=== PATIENT | male | born 1970 | race Caucasian/White ===

== ENCOUNTER 2019-04-20 22:54 | Emergency (ER) | payer OTHER ==
[~2019-04-20] VITALS: Ht 167.6 cm; Wt 102.1 kg
--- OUTSIDE RECORDS SUMMARY | ~2019-04-20 | XMS | Clinical Summary ---
Demographics + + + | Address | [address] | | | [place] [address] | + + + | Home Phone | | + + + | Preferred Language | Unknown | + + + | Marital Status | Single | + + + | Baptism Affiliation | Unknown | + + + | Race | Unknown | + + + | Ethnic Group | Unknown | + + + Author + + + | Author | [facility] | + + + | Organization | [facility] | + + + | Address | Unknown | + + + | Phone | Unavailable | + + + Support + + + + + | Name | Relationship | Address | Phone | + + + + + | Trevor Denis | ECON | [address] | | | | | [place] [address] | | + + + + + | Halie Denis | ECON | [address] | | | | | [place] [address] | | + + + + + Care Team Providers + +------+ + | Care Plant Production Manager Name | Role | Phone | + +------+ + | Booker Yin MD | PP | | + +------+ + Allergies + + + + + + | Active Allergy | Reactions | Severity | Noted | Comments | | | | | Date | | + + + + + + | Fish Allergy | Other (See Comments) | Medium | 07/07/20 | Itchy throat and | | | | | 16 | hives, with fin | | | | | | fish, not shell fish | + + + + + + | Other-Food | Other (See Comments) | Medium | 07/07/20 | Watermelon, | | | | | 16 | cucumbers, honeydew, | | | | | | banana. | | | | | | Itchy/scratchy | | | | | | throat | + + + + + + Current Medications + + +--------+---------+------+------+-------+ | Prescription | Sig. | Disp. | Refills | Star | End | Statu | | | | | | t | Date | s | | | | | | Date | | | + + +--------+---------+------+------+-------+ | | Take 1 tablet by | | | | | Activ | | loratadine-pseudoeph | mouth daily. | | | | | e | | edrine (CLARITIN-D | | | | | | | | 24-HOUR) 10-240 MG | | | | | | | | per 24 hr tablet | | | | | | | + + +--------+---------+------+------+-------+ | Multiple | Take 1 tablet by | | | | | Activ | | Vitamins-Minerals | mouth daily. | | | | | e | | (CENTRUM PO) | | | | | | | + + +--------+---------+------+------+-------+ | Magnesium 400 MG | Take 1 capsule by | | | | | Activ | | CAPSIndications: leg | mouth 2 (two) times | | | | | e | | cramps | daily. | | | | | | | | Indications: leg | | | | | | | | cramps | | | | | | + + +--------+---------+------+------+-------+ | | Inhale 1 puff into | 180 | 3 | 03/0 | | Activ | | fluticasone-salmeter | the lungs 2 (two) | each | | 9/20 | | e | | ol (ADVAIR) 250-50 | times daily. | | | 16 | | | | MCG/DOSEIndications: | | | | | | | | Uncomplicated | | | | | | | | asthma, unspecified | | | | | | | | asthma severity | | | | | | | + + +--------+---------+------+------+-------+ | ferrous sulfate, | Take 1 tablet by | 60 | 5 | 04/2 | | Activ | | 65 FE, 324 (65 FE) | mouth 2 (two) times | tablet | | 6/20 | | e | | MG EC | daily with meals. | | | 16 | | | | tabletIndications: | | | | | | | | Microcytic anemia | | | | | | | + + +--------+---------+------+------+-------+ | traMADol (ULTRAM) | TAKE 1 TABLET BY | 90 | 0 | 03/0 | | Activ | | 50 MG | MOUTH EVERY 6 HOURS | tablet | | 6/20 | | e | | tabletIndications: | NEEDED FOR PAIN | | | 17 | | | | Chronic pain | | | | | | | | syndrome | | | | | | | + + +--------+---------+------+------+-------+ | predniSONE | Take 10 mg by mouth | | | | | Activ | | (DELTASONE) 10 MG | daily. | | | | | e | | tablet | | | | | | | + + +--------+---------+------+------+-------+ | VENTOLIN HFA 108 | Inhale 1 puff into | | | 11/2 | | Activ | | (90 Base) MCG/ACT | the lungs every 4 | | | 8/20 | | e | | inhaler | (four) hours as | | | 17 | | | | | needed. | | | | | | + + +--------+---------+------+------+-------+ | | Apply twice a day | 45 g | 3 | 05/27 | 05/27 | Activ | | clotrimazole-betamet | for 10 days | | | 12/16 | 12/16 | e | | hasone (LOTRISONE) | | | | 18 | 19 | | | cream | | | | | | | + + +--------+---------+------+------+-------+ | furosemide (LASIX) | Take 1 tablet by | 90 | 1 | 05/27 | | Activ | | 40 MG | mouth daily as | tablet | | 1/20 | | e | | tabletIndications: | needed. | | | 18 | | | | Localized swelling | | | | | | | | of both lower legs, | | | | | | | | Edema of both legs | | | | | | | + + +--------+---------+------+------+-------+ | amLODIPine | Take 1 tablet by | 90 | 0 | /2 | 07/2 | Activ | | (NORVASC) 5 MG | mouth nightly. | tablet | | 05/16 | 05/16 | e | | tabletIndications: | | | | 18 | 19 | | | Hypertension, | | | | | | | | unspecified type | | | | | | | + + +--------+---------+------+------+-------+ | ADVAIR DISKUS | | | | 06/0 | | Activ | | 500-50 MCG/DOSE | | | | 02/13 | | e | | diskus inhaler | | | | 18 | | | + + +--------+---------+------+------+-------+ + + +-------+ +------+------+-------+ | Hospital, Clinic, or | Ordered | Route | Frequency | Star | End | Statu | | Other Facility | Dose | | | t | Date | s | | Administered | | | | Date | | | | Medication | | | | | | | + + +-------+ +------+------+-------+ | betamethasone | 6 mg | IX | Once | 08/2 | 08/2 | Activ | | acetate-betamethason | | | | / | /20 | e | | e sodium phosphate | | | | 18 | 38 | | | (CELESTONE) | | | | | | | | injection 6 | | | | | | | | mgIndications: | | | | | | | | Acquired trigger | | | | | | | | finger of left | | | | | | | | middle finger | | | | | | | + + +-------+ +------+------+-------+ | bupivacaine (PF) | 1 mL | IX | Once | 08/2 | 08/2 | Activ | | (MARCAINE) 0.25 % | | | | 4/20 | 5/20 | e | | injection 1 | | | | 18 | 38 | | | mLIndications: | | | | | | | | Acquired trigger | | | | | | | | finger of left | | | | | | | | middle finger | | | | | | | + + +-------+ +------+------+-------+ Active Problems + + + | Problem | Noted Date | + + + | Prediabetes | 03/13/2017 | + + + | Microcytic anemia | 03/22/2016 | + + + | Microcytosis | 03/18/2016 | + + + | Hypertension | 12/21/2012 | + + + | Asthma | 04/06/2012 | + + + | Obese | 04/06/2012 | + + + Immunizations + + + + | Name | Dates Previously Given | Next Due | + + + + | Influenza Split | 08/28/2013 (Deferred: Patient Refused - | | | | call and verified with patient, he did not | | | | receive vaccine during appointment ) | | + + + + | Tdap | 02/22/2017 | | + + + + Family History + + +------+ + | Medical History | Relation | Name | Comments | + + +------+ + | Lung cancer | Brother | | | + + +------+ + | Alzheimer's disease | Mother | | | + + +------+ + + +------+ + + | Relation | Name | Status | Comments | + +------+ + + | Brother | | | | + +------+ + + | Father | | Alive | | + +------+ + + | Maternal Grandfather | | | | + +------+ + + | Maternal Grandmother | | | | + +------+ + + | Mother | | Alive | | + +------+ + + | Paternal Grandfather | | | | + +------+ + + | Paternal Grandmother | | | | + +------+ + + Social History + +-------+ +--------+------+ | Tobacco Use | Types | Packs/Day | Years | Date | | | | | Used | | + +-------+ +--------+------+ | Never Smoker | | | | | + +-------+ +--------+------+ + +---+---+---+ | Smokeless Tobacco: | | | | | Never Used | | | | + +---+---+---+ + + +---------+ + | Alcohol Use | Drinks/We | oz/Week | Comments | | | ek | | | + + +---------+ + | No | 1 Cans | 0.6 | none since ~01/2017 | | | of beer | | | + + +---------+ + + + + | Sex Assigned at | Date Recorded | | | | + + + | Not on file | | + + + Last Filed Vital Signs + + + + | Vital Sign | Reading | Time Taken | + + + + | Blood Pressure | 128/64 | 07/19/2018 4:13 PM PDT | + + + + | Pulse | 78 | 06/06/2018 10:30 AM PDT | + + + + | Temperature | 36.7 C (98.1 F) | 06/06/2018 10:30 AM PDT | + + + + | Respiratory Rate | 16 | 06/06/2018 10:30 AM PDT | + + + + | Oxygen Saturation | 98% | 06/06/2018 10:30 AM PDT | + + + + | Inhaled Oxygen | - | - | | Concentration | | | + + + + | Weight | 107.5 kg (237 lb) | 07/19/2018 4:13 PM PDT | + + + + | Height | 168.9 cm (5' 6.5") | 07/19/2018 4:13 PM PDT | + + + + | Body Mass Index | 37.68 | 07/19/2018 4:13 PM PDT | + + + + Plan of Treatment + + + + + | Health Maintenance | Due Date | Last Done | Comments | + + + + + | Vaccine: | | | | | Pneumococcal 19-64 | 7 | | | | (PPSV23 only) Medium | | | | | Risk (1 of 1 - | | | | | PPSV23) | | | | + + + + + | Colon Cancer | | | | | Screening | 8 | | | | (Colonoscopy) | | | | + + + + + | Vaccine: Zoster (1 | | | | | of 2) | 8 | | | + + + + + | Vaccine: Influenza | | | | | (Season Ended) | 9 | | | + + + + + | Vaccine: | | 02/22/2017 | | | Dtap/Tdap/Td (2 - | 7 | | | | Td) | | | | + + + + + Results Not on filefrom Last 3 Months Insurance +---------+--------+ +------+-------+ + | Payer | Benefi | Subscriber | Type | Phone | Address | | | t Plan | ID | | | | | | / | | | | | | | Group | | | | | +---------+--------+ +------+-------+ + | [employer] | PREMER | [id number] | | | [address] [address] | | | [place] | | | | [place] | | | [place] | | | | [phone] | | | FED | | | | | | | PPO | | | | | +---------+--------+ +------+-------+ + + +--------+ +--------+ + + | Guarantor Name | Accoun | Relation to | Date | Phone | Billing Address | | | t Type | Patient | of | | | | | | | | | | + +--------+ +--------+ + + | TREVOR DENIS JR. | Person | Self [birth year] | Home: | [address] | | | al/Fam | | 1970 | [phone] | [place] | | | [place] | | | [phone] | [phone] | + +--------+ +--------+ + +
--- OUTSIDE RECORDS SUMMARY | ~2019-04-20 | XMS | Clinical Summary ---
Demographics + + + | Address | [address] | | | [place] [address] | + + + | Home Phone | | + + + | Preferred Language | Unknown | + + + | Marital Status | Single | + + + | Sabianist Affiliation | Unknown | + + + | Race | Unknown | + + + | Ethnic Group | Unknown | + + + Author + + + | Author | [facility] [employer] [facility] | + + + | Organization | [facility] | + + + | Address | Unknown | + + + | Phone | Unavailable | + + + Support + + + + + | Name | Relationship | Address | Phone | + + + + + | Trevor Denis | ECON | [address] | | | | | [place] [address] | | + + + + + | Halie Denis | ECON | [address] | | | | | [place] [address] | | + + + + + Care Team Providers + +------+ + | Care Painter Barrel Name | Role | Phone | + [...] +------+-------+ + | [employer] | PREMER | [id number] | | | [address] [address] | | | [place] | | | | [place] | | | [place] | | | | [phone] | | | FED | | | [...] Self | [birth year] | Home: | [address] | | | al/Fam | | 1970 | [phone] | [place] | | | [place] | | | [phone] | [phone] | + +--------+ +--------+ + +
[2019-04-20] MEDS ORDERED: VENTOLIN HFA18 GM INH (23:06)
[2019-04-21] MEDS ORDERED: CEPHALEXIN500 MG PO (01:06)
== END 2019-04-21 01:20 | disposition home or self-care (01) ==
LOC: ED 22:54
PROC: 0XQRXZZ Repair Left Middle Finger, External Approach (ICD-10-PCS; principal; 2019-04-20)
DX: S61.213A Laceration without foreign body of left middle finger without damage to nail, initial encounter (principal); I10 Essential (primary) hypertension; J45.909 Unspecified asthma, uncomplicated; W26.0XXA Contact with knife, initial encounter
CPT/HCPCS: 12001; 99282-25